=== PATIENT | female | born 1970 | race Caucasian/White ===

== ENCOUNTER 2020-09-25 14:17 | Outpatient (CLI) | payer OTHER, SELFPAY ==
--- NOTE | 2020-09-25 14:44 | ECHO_ITS ---
Patient Info Name: Nika Trujillo Age: 50 years : 1970 Gender: Female Ht: 63 in Wt: 260 lbs BSA: 2.36 m2 HR: 98 bpm BP: 134 / 91 mmHg Technical Quality: Poor Exam Date: 09/25/2020 2:52 PM Exam Location: [facility] Patient Status: Outpatient Admit Date: 09/25/2020 Staff Ordering Physician: Etienne Marcum DO Crime Scene Photographer: Aleida Osborn RDCS Attending Provider: Etienne Marcum DO Referring Physician: Jossue THOMAS; Exam Type: CA echo dop color flow w con Study Info Indications R06.00 - Dyspnea, unspecified Complete two-dimensional, color flow and Doppler transthoracic echocardiogram is performed with contrast to opacify the left ventricle and to improve the deliniation of the left ventricle endocardial borders. Contrast/Agitated Saline Contrast/Ag. Saline: Definity Amount: 2.00 ml Administered By: Carla Langston RN New IV Access: Antecubital Space and Left Site Condition: IV removed and No extravasation Reason for Poor Study: patient body habitus Summary 1. Left ventricular chamber dimension is normal. 2. Definity contrast administered improved wall motion interpretation. 3. Left ventricular systolic function is normal, estimated at 65-70%. 4. The left ventricular diastolic function is grade I diastolic dysfunction. 5. E/e' 7 is not elevated. 6. No pulmonary hypertension, estimated pulmonary arterial systolic pressure is 24 mmHg. 7. There is trace pulmonic regurgitation. Left Ventricle Definity contrast administered improved wall motion interpretation. E/e' 7 is not elevated. Left ventricular chamber dimension is normal. Left ventricular systolic function is normal, estimated at 65-70%. The left ventricular diastolic function is grade I diastolic dysfunction. Right Ventricle Right ventricular chamber dimension is normal. Right ventricular systolic function is normal. Left Atria Left atrial chamber dimension is normal. Right Atria Right atrial chamber dimension is normal. Aortic Valve The aortic valve is probable trileaflet. There is no aortic valve stenosis. There is no aortic valve regurgitation. Pulmonic Valve There is trace pulmonic regurgitation. Mitral Valve There is no mitral valve stenosis. There is no mitral valve regurgitation. Tricuspid Valve There is no tricuspid valve regurgitation. No pulmonary hypertension, estimated pulmonary arterial systolic pressure is 24 mmHg. Pericardium/Pleural There is no pericardial effusion. Inferior Vena Cava Normal inferior vena cava with >50% collapse upon inspiration consistent with normal right atrial pressure, 5 mmHg. Aorta The aortic root size at the sinus of Valsalva is normal. Left Ventricular Outflow Tract Name Value Normal LVOT 2D LVOT Diameter 1.90 cm LVOT Doppler LVOT Peak Gradient 5 mmHg LVOT Mean Gradient 3 mmHg LVOT VTI 20.26 cm LVOT VTI/AV VTI Ratio 0.93 LVOT Stroke Volume 57.57 ml LV
[2020-09-25] MEDS: PERFLUTREN LIPID MICROSPHERES 1.5 ML VIAL DILUTED TO 10 ML TOTAL VOLUME IV PUSH (15:55)
== END 2020-09-25 14:18 | disposition home or self-care (01) ==
PROVIDERS: PCP Family Medicine; Visit Provider Internal Medicine Cardiovascular Disease
DX: R06.00 Dyspnea, unspecified (principal)
CPT/HCPCS: C8929

== ENCOUNTER 2021-10-29 08:37 | Outpatient (CLI) | payer OTHER, SELFPAY ==
--- NOTE | 2021-10-30 09:46 | WPDNEUROLOGY ---
Neurology EEG Report General Information Date of Study: 10/29/21 TEST eeg DIAGNOSIS Transient alteration of awareness CONDITION OF RECORDING awake drowsy and sleep EEG NUMBER [id number] CLINICAL HISTORY patient reports she started having episodes of hand shaking and visual changes about 6 months ago these episodes are happening several times a day and now her legs get shaky as well EEG DESCRIPTION basic resting occipital frequency consists of low voltage 9 to 11 hertz per 2nd alpha admixed with low-voltage 15 to 18 hertz per 2nd beta. Bilateral symmetrical sleep activity seen during sleep. Hyperventilation not done. Photic stimulation produced normal drive. Non paroxysmal. Nonfocal. Nonlateralizing. IMPRESSION Normal record
== END 2021-10-29 08:38 | disposition home or self-care (01) ==
PROVIDERS: PCP Family Medicine; Visit Provider Nurse Practitioner Family
DX: R40.4 Transient alteration of awareness (principal)
CPT/HCPCS: 95816

== ENCOUNTER 2021-11-02 11:17 | Outpatient (CLI) | payer OTHER, SELFPAY ==
--- NOTE | ~2021-11-02 | XR_ITS ---
EXAMINATION: XR chest 2V EXAM DATE: 11/02/2021 11:31 INDICATION: R06.02 - Shortness of breath. TECHNIQUE: Portable AP frontal chest x-ray was obtained. There is no prior study for comparison. FINDINGS: Linear lingular atelectasis or scarring. The lungs are otherwise clear. There are no pleur al effusions. The cardiomediastinal silhouette is within normal limits. There is no pneumothorax huynh spected. The bones and soft tissues are unremarkable. IMPRESSION: Linear lingular atelectasis or scarring. Reviewed, dictated and finalized at location A.
== END 2021-11-02 11:18 ==
LOC: MICIMG 11:20
PROVIDERS: PCP Nurse Practitioner Family; Visit Provider Nurse Practitioner Family
DX: R06.02 Shortness of breath (principal)
CPT/HCPCS: 71046

== ENCOUNTER 2021-11-08 12:33 | Outpatient (CLI) | payer OTHER, SELFPAY ==
--- NOTE | 2021-11-11 20:05 | WPDPFTINT ---
PFT Procedure Performed PFT Procedure Performed Spirometry with Pre/Post Bronchodilator Plethysmography (Lung Vol) Diffusing Cap (DLCO) Flow Vol Loop PFT Interpretation DOS: 11/08/2021 REQUESTING: Terrance Holcomb NP REASON FOR TESTING: Shortness of breath PULMONARY FUNCTION TESTS Results are reliable and reproducible. Spirometry: pre bronchodilator FEV1 is 82% predicted, 2.2 L, normal. Pre bronchodilator FVC is 86% predicted, 2.87 L, normal. FEV1/FVC is 77%, normal. After bronchodilator administration there is a 3% increase in the FEV1 and FVC. This is not statistically significant. Lung volumes: The total lung capacity is 97% predicted, 4.75 L, normal. The slow vital capacity is 92% predicted, 3.07 L, normal. The functional reserve capacity is 97%, 2.64 L, normal. ERV is 73%, 0.76 L, decreased below normal limits. Residual volume is 97%, 1.68 L, normal. RV/TLC is 35%, normal. No hyperinflation or air trapping. Airway resistance is elevated. Diffusion: DLCO 77%, Within the normal range.DLCO/VA is 98%, normal. Flow volume loop: Normal. IMPRESSION: This study shows normal spirometry, normal lung volumes and normal diffusion capacity. Lack of response to bronchodilator should not preclude use if clinically indicated. Abigail Bergman MD
== END 2021-11-08 12:34 | disposition home or self-care (01) ==
LOC: ANHPFT 12:34
PROVIDERS: PCP Nurse Practitioner Family; Visit Provider Nurse Practitioner Family
DX: R06.02 Shortness of breath (principal)
CPT/HCPCS: 94060; 94726; 94729

== ENCOUNTER 2021-11-29 08:17 | Outpatient (CLI) | payer OTHER, SELFPAY ==
--- NOTE | 2021-12-03 12:26 | WPDHOMESLEEP ---
Sleep Study - Home Unattended Date of Study: 11/29/21 Ordering Provider: Sebastien Olsen MD Interpreting Provider: Radha Varela, DO Home Sleep Study Type: Watch PAT Height: 1.63 m Weight: 123.377 kg Body Mass Index: 46.7 Neck Circumference (inches): 16.5 [place]: 10 Reason for Sleep Study Unrefreshing sleep, daytime hypersomnia Sleep History The patient is a 51-year-old female with anxiety, hypertension, seasonal allergies, diabetes, tobacco abuse and morbid obesity had a sleep study ordered for evaluation of sleep apnea. 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 She constantly awakens at night with heartburn, belching or cough. She constantly snores loud enough that others complain. She frequently has trouble sleeping when she has a cold. She frequently wakes up gasping for air throughout the night. She frequently has breathing problems at night observed by herself or others. She constantly sweats excessively at night. She constantly has heart palpitations or irregular heartbeats during the night. She frequently falls asleep during the day but never while driving. He rarely experiences loss of muscle tone when extremely emotional. She constantly has trouble at school or work due to sleepiness. She rarely feels unable to move while waking up or falling asleep. She constantly experiences vivid dreamlike scenes upon awakening or falling asleep. She frequently feels afraid of going to sleep. She occasionally has nightmares but never remembers her dreams. She frequently has thoughts racing through her mind. She constantly feels sad or depressed. She constantly has anxiety. She constantly has muscular tension. She constantly notices parts of her body jerk. She frequently kicks during the night. She constantly has crawling and aching feelings in her legs as well as leg pain during the night. She frequently grinds her teeth during sleep but rarely awakens with morning jaw pain. He is constantly bothered by pain during the day and occasionally awakened by pain during night. She constantly wakes up feeling stiff in the morning. She constantly wakes up with sore achy muscles. She constantly wakes up with pain in neck, spine or other joints. She goes to bed at 11:00 p.m. on weekdays and midnight on the weekends. Her sleep latency is variable from few minutes to few hours. She wakes up twice throughout the night. When she awakens, she will readjust herself or get a drink. She wakes up at 6:30 a.m. on weekdays and does not have a set wake-up time on the weekends. She typically gets 6 and half to 7-1/2 hours of sleep per night. She does not stay in bed after waking up in the morning. She currently lives with her and 15-year-old daughter. She does not consume any caffeinated beverages within 2 hours of bedtime. She does not engage in physical exercise before bedtime. She will watch television before falling asleep. She will take naps in the afternoon or the evening but they are not refreshing. She will drink 3 cans of caffeinated beverage per day. She currently smokes 1 pack of cigarettes per day. She denies alcohol and recreational drug use. [facility] Past Medical History Medical History Anxiety Anxiety associated with depression Arthralgia of temporomandibular joint, unspecified side B12 deficiency BMI greater than 40 Body mass index [BMI]40.0-44.9, adult (11/17/18) COVID Diabetes mellitus Dietary counseling and surveillance (10/21/18) Dizziness Elevated glucose Family history of coronary artery disease Family history of pancreatic cancer History of vitamin D deficiency Morbid (severe) obesity due to excess calories Nausea Rapid or irregular heartbeat Screening for lipid disorders Seasonal allergies Sinus pressure Tobacco abuse Vitamin D deficiency Family History Family History (Reviewed
[2021-12-03 12:32] VITALS: BMI 46.7
== END 2021-11-30 14:19 | disposition home or self-care (01) ==
LOC: ANHCSM 08:17
PROVIDERS: PCP Nurse Practitioner Family; Visit Provider Family Medicine
DX: G47.10 Hypersomnia, unspecified (principal); G47.33 Obstructive sleep apnea (adult) (pediatric)
CPT/HCPCS: 95800

== ENCOUNTER 2021-12-08 11:38 | Outpatient (CLI) | payer OTHER, SELFPAY ==
--- NOTE | ~2021-12-08 | MM_ITS ---
EXAMINATION: MM screening melina BI w jagdish HISTORY: Screening mammogram TECHNIQUE: Craniocaudal and mediolateral oblique 3-D tomosynthesis images were obtained and synthetic 2-D images were generated. Bilateral rotated lateral CC views. CAD analysis was submitted and interp reted. COMPARISON: No prior mammogram is available for comparison at this institution. BREAST PARENCHYMAL COMPOSITION: There are scattered areas of fibroglandular density. FINDINGS: Circumscribed benign-appearing left axillary tail lymph node. There is no evidence of suspi cious mass, calcification, or architectural distortion to suggest malignancy in either breast. IMPRESSION: 1. No mammographic evidence of malignancy. 2. Recommend routine screening mammography in one year. BI-RADS Category 2: Benign finding(s). Reviewed, dictated and finalized at location A.
== END 2021-12-08 11:39 | disposition home or self-care (01) ==
LOC: ANHIMG 11:40
PROVIDERS: PCP Nurse Practitioner Family; Visit Provider Nurse Practitioner Family
DX: Z12.31 Encounter for screening mammogram for malignant neoplasm of breast (principal)
CPT/HCPCS: 77063; 77067

== ENCOUNTER 2021-12-20 16:00 | Outpatient (CLI) | payer OTHER, SELFPAY ==
--- NOTE | ~2021-12-20 | US_ITS ---
US axilla 12/20/2021 16:46 Indication: Lymphadenopathy Procedure: High-resolution Limited ultrasound of the axilla bilaterally Comparison: No prior studies for comparison. Findings: There are normal appearing bilateral axillary lymph nodes which retain their fatty hilum. L argest in the right axilla measures 8 mm in largest on the left measures 1.2 cm. No suspicious masses or fluid collections are identified. Impression: 1: Normal bilateral axillary lymph nodes. Reviewed, dictated and finalized at location D. Impression: 1: Normal bilateral axillary lymph nodes.
== END 2021-12-20 16:01 | disposition home or self-care (01) ==
PROVIDERS: PCP Nurse Practitioner Family; Visit Provider Nurse Practitioner Family
DX: R59.0 Localized enlarged lymph nodes (principal)
CPT/HCPCS: 76882

== ENCOUNTER 2022-01-21 15:12 | Outpatient (CLI) | payer OTHER, SELFPAY ==
--- NOTE | ~2022-01-21 | MR_ITS ---
EXAMINATION: MR cervical spine wo/w con DATE: 01/21/2022 17:53 INDICATION: Demyelinating disease. TECHNIQUE: Magnetic resonance imaging (MRI) of the cervical spine was performed without and with 20 m L MultiHance intravenous contrast. COMPARISON: None FINDINGS: There is mild kyphosis of cervical spine. Vertebral body heights are normal. There is mildl y decreased disc height at C5-C6 and C6-C7. The spinal cord signal intensity is normal. The following disc levels are specifically discussed: C2-C3: The disc does not extend beyond the endplate margin. There is no uncovertebral joint osteoarth ritis. There is mild bilateral facet joint osteoarthritis. There is no neural foraminal stenosis. The re is no central canal stenosis. C3-C4: There is a right central protrusion. There is mild right uncovertebral joint osteoarthritis. T here is no facet joint osteoarthritis. There is mild right neural foraminal stenosis. There is no fina tral canal stenosis. C4-C5: There is a central protrusion. There is no uncovertebral joint osteoarthritis. There is mild r ight facet joint osteoarthritis. There is no neural foraminal stenosis. There is mild central canal s tenosis. C5-C6: There is a central extrusion. There is mild right and moderate left uncovertebral joint osteoa rthritis. There is mild right facet joint osteoarthritis. There is mild left neural foraminal stenosi s. There is mild central canal stenosis. C6-C7: There is a central extrusion. There is moderate bilateral uncovertebral joint osteoarthritis. There is mild right facet joint osteoarthritis. There is mild bilateral neural foraminal stenosis. Th ere is mild central canal stenosis. C7-T1: The disc does not extend beyond the endplate margin. There is no uncovertebral joint osteoarth ritis. There is severe right and moderate left facet joint osteoarthritis. There is mild bilateral ne ural foraminal stenosis. There is no central canal stenosis. IMPRESSION: 1. Normal spinal cord. 2. Mild cervical spondylosis. Reviewed, dictated and finalized at location A.
--- NOTE | ~2022-01-21 | MR_ITS ---
EXAMINATION: MR brain/brain stem wo/w con DATE: 01/21/2022 17:52 INDICATION: Demyelinating disease. TECHNIQUE: Magnetic resonance imaging (MRI) of the brain and brainstem was performed without and with 20 mL MultiHance intravenous contrast. COMPARISON: Head CT 04/15/2010 FINDINGS: There is no intracranial hemorrhage, acute infarction, or abnormal intracranial mass lesion . The ventricles are normal in size. The orbits are normal. The paranasal sinuses are clear. The mast oid air cells are normal. IMPRESSION: 1. Normal brain. Reviewed, dictated and finalized at location A. IMPRESSION: 1. Normal brain.
--- NOTE | ~2022-01-21 | MR_ITS ---
EXAMINATION: MR thoracic spine wo/w con DATE: 01/21/2022 17:52 INDICATION: Demyelinating disease. TECHNIQUE: Magnetic resonance imaging (MRI) of the thoracic spine was performed without and with 20 m L MultiHance intravenous contrast. COMPARISON: None FINDINGS: There is 3 degrees dextrocurvature of thoracic spine. Vertebral body heights are normal. Th ere is mildly decreased disc height at T5-T6. At T2-T3, there is a central protrusion with mild centr al canal stenosis. There is multilevel facet joint osteoarthritis, moderate on the left at T7-T8. On the left, there is mild neural foraminal stenosis at T7-T8. The spinal cord signal intensity is malorie l. IMPRESSION: 1. Normal spinal cord. 2. Mild thoracic spondylosis. Reviewed, dictated and finalized at location A.
== END 2022-01-21 15:13 | disposition home or self-care (01) ==
PROVIDERS: PCP Nurse Practitioner Family; Visit Provider Psychiatry & Neurology Neurology
DX: G37.9 Demyelinating disease of central nervous system, unspecified (principal); M47.894 Other spondylosis, thoracic region; M47.892 Other spondylosis, cervical region
CPT/HCPCS: 70553; 72156; 72157; A9577

== ENCOUNTER → 2022-01-26 07:28 | Outpatient (CLI) | payer OTHER, SELFPAY ==
--- NOTE | ~2022-01-26 | US_ITS ---
EXAMINATION: US abdomen complete DATE: 01/26/2022 07:54 INDICATION: Elevated liver enzymes, abdominal pain. TECHNIQUE: Multiple grayscale and Doppler ultrasound images of the abdomen were obtained. COMPARISON: None available FINDINGS: Visualized portions of the pancreas are normal. Increased liver echogenicity. No surface no dularity. Normal hepatopetal flow in the main portal vein. Absent gallbladder. The normal common bile duct measures 0.5 cm. The visualized portions of the aorta and inferior vena cava are normal. The right kidney measures 11.6 x 4.2 x 6.1. The left kidney measures 11.6 x 5.1 x 5.6. The kidneys de monstrate normal parenchymal echogenicity. There is no hydronephrosis. The spleen is normal in appear ance and measures 9.2 cm. IMPRESSION: 1. Echogenic liver, as can be seen with steatosis, fibrosis and hepatitis. Reviewed, dictated and finalized at location K.
== END ==
PROVIDERS: PCP Nurse Practitioner Family; Visit Provider Nurse Practitioner Family
DX: R74.01 Elevation of levels of liver transaminase levels (principal); R10.9 Unspecified abdominal pain; R93.2 Abnormal findings on diagnostic imaging of liver and biliary tract
CPT/HCPCS: 76700

== ENCOUNTER 2022-03-08 08:51 | Outpatient (CLI) | payer OTHER, SELFPAY ==
--- NOTE | 2022-03-08 11:00 | NEURO_ITS ---
Impression: # Complains of syncopal episodes. # Axonal peripheral neuropathy involving peroneal nerves more than posterior tibial nerves and involving right more than left. # Needle/EMG exam revealed neurogenic changes. Nerve Conduction Studies Anti Sensory Summary Table Stim Site NR Peak (ms) P-T Amp (?V) Site1 Site2 Delta-P (ms) Dist (cm) Dimitris (m/s) Left Sup Fibular Anti Sensory (Ant Lat Mall) 14 cm 3.1 47.1 14 cm Ant Lat Mall 3.1 16.0 52 Right Sup Fibular Anti Sensory (Ant Lat Mall) NO RESPONSE 14 cm NR 14 cm Ant Lat Mall 16.0 Left Sural Anti Sensory (Lat Mall) Calf 3.6 7.9 Calf Lat Mall 3.6 16.0 44 Right Sural Anti Sensory (Lat Mall) NO RESPONSE Calf NR Calf Lat Mall 16.0 Motor Summary Table Stim Site NR Onset (ms) O-P Amp (mV) Site1 Site2 Delta-0 (ms) Dist (cm) Dimitris (m/s) Left Peroneal Motor (Vastus Med) Ankle 4.0 1.5 Popit Ankle 7.0 37.0 53 Popit 11.0 0.7 Right Peroneal Motor (Vastus Med) Ankle 4.0 0.3 Popit Ankle 6.9 37.0 54 Popit 10.9 0.5 Left Tibial Motor (Abd Saldaña Brev) Ankle 4.5 5.5 Knee Ankle 8.7 40.0 46 Knee 13.2 3.7 Right Tibial Motor (Abd Saldaña Brev) Ankle 4.3 4.9 Knee Ankle 8.0 39.0 49 Knee 12.3 1.2 F Wave Studies NR F-Lat (ms) L-R F-Lat (ms) Left Peroneal (Mrkrs) (EDB) 47.60 0.82 Right Peroneal (Mrkrs) (EDB) 48.42 0.82 Left Tibial (Mrkrs) (Abd Hallucis) 47.11 0.86 Right Tibial (Mrkrs) (Abd Hallucis) 47.97 0.86 EMG Side Muscle Nerve Root Ins Act Fibs Amp Dur Recrt Comment Right AntTibialis Dp Br Fibular L4-5 Nml Nml Nml Nml Reduced Right Gastroc Tibial S1-2 Nml Nml Nml Nml Reduced Right Fibularis Long Sup Br Fibular L5-S1 Nml Nml Decr Nml Reduced Right Flex Dig Long Tibial L5-S2 Nml Nml Nml Nml Reduced Right Ext Dig Brev Dp Br Fibular L5, S1 Nml Nml Decr Nml Reduced Left AntTibialis Dp Br Fibular L4-5 Nml Nml Nml Nml Reduced Left Gastroc Tibial S1-2 Nml Nml Nml Nml Reduced Left Fibularis Long Sup Br Fibular L5-S1 Nml Nml Decr Nml Reduced Left Flex Dig Long Tibial L5-S2 Nml Nml Nml Nml Reduced Left Ext Dig Brev Dp Br Fibular L5, S1 Nml Nml Decr Nml Reduced MTDD
== END 2022-03-08 08:52 | disposition home or self-care (01) ==
PROVIDERS: PCP Nurse Practitioner Family; Visit Provider Psychiatry & Neurology Neurology
DX: G62.9 Polyneuropathy, unspecified (principal)
CPT/HCPCS: 95886; 95910

== ENCOUNTER 2022-03-25 09:50 | Outpatient (CLI) | payer OTHER, SELFPAY ==
--- NOTE | ~2022-03-25 | MR_ITS ---
EXAMINATION: MR abdomen wo/w con DATE: 03/25/2022 11:13 INDICATION: Iron deposition and accumulation in the liver. Hereditary hemochromatosis. TECHNIQUE: Magnetic resonance imaging (MRI) of the abdomen was performed without and with 20 mL Multi Michelle intravenous contrast. COMPARISON: Abdomen ultrasound 01/26/2022 FINDINGS: There is diffuse hepatic steatosis. The gallbladder is absent. The pancreas and spleen are normal. Th ere are masses in the adrenal glands measuring up to 2.8 cm on the right containing microscopic fat, consistent with adenomas. The kidneys are normal. There are no dilated loops of bowel. There are no p athologically enlarged lymph nodes. There is no free intraperitoneal fluid. IMPRESSION: 1. Diffuse hepatic steatosis. 2. Bilateral adrenal adenomas. Reviewed, dictated and finalized at location A.
== END 2022-03-25 09:51 | disposition home or self-care (01) ==
LOC: ANHIMG 09:53
PROVIDERS: PCP Family Medicine; Visit Provider Nurse Practitioner
DX: E83.110 Hereditary hemochromatosis (principal); R79.89 Other specified abnormal findings of blood chemistry; R93.2 Abnormal findings on diagnostic imaging of liver and biliary tract; K76.0 Fatty (change of) liver, not elsewhere classified; D35.01 Benign neoplasm of right adrenal gland; D35.02 Benign neoplasm of left adrenal gland
CPT/HCPCS: 74183; A9577

== ENCOUNTER 2022-05-30 10:01 | Outpatient (CLI) | payer OTHER, SELFPAY ==
--- NOTE | ~2022-05-30 | US_ITS ---
EXAMINATION: US thyroid DATE: 05/30/2022 10:32 INDICATION: Goiter. TECHNIQUE: Multiple ultrasound images of the thyroid were obtained. COMPARISON: None. FINDINGS: The right thyroid lobe measures 4.1 x 1.3 x 1.7 cm. The left thyroid lobe measures 3.7 x 1.1 x 1.7 c m. In the left thyroid lobe, there is an 8 mm mixed cystic and solid, isoechoic, wider than tall nod ule with smooth margin without echogenic foci (TI-RADS TR2). In the right thyroid lobe, there is a 5 mm solid, hypoechoic, wider than tall nodule with smooth margin without echogenic foci (TR4). IMPRESSION: 1. Small thyroid nodules, likely not clinically significant. No follow-up is needed. Reviewed, dictated and finalized at location A. 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 Small thyroid nodules, likely not clinically significant. No follow-up is ne eded.
== END 2022-05-30 10:02 | disposition home or self-care (01) ==
PROVIDERS: PCP Family Medicine; Visit Provider Internal Medicine Endocrinology, Diabetes & Metabolism
DX: E04.2 Nontoxic multinodular goiter (principal)
CPT/HCPCS: 76536

== ENCOUNTER 2022-07-25 15:29 | Outpatient (RCR) | payer OTHER, SELFPAY | END 2022-09-13 14:56 | disposition home or self-care (01) | LOC: ANHDMC 15:29 | PROVIDERS: PCP Family Medicine; Visit Provider Internal Medicine Endocrinology, Diabetes & Metabolism | DX: E11.65 Type 2 diabetes mellitus with hyperglycemia (principal); Z71.89 Other specified counseling | CPT/HCPCS: G0108 ==

== ENCOUNTER 2022-08-29 16:38 | Outpatient (CLI) | payer OTHER, SELFPAY ==
--- NOTE | ~2022-08-29 | MR_ITS ---
EXAMINATION: MR abdomen wo/w con DATE: 08/29/2022 18:12 INDICATION: Abdominal pain. TECHNIQUE: Magnetic resonance imaging (MRI) of the abdomen was performed without and with 20 mL Multi Michelle intravenous contrast. COMPARISON: Abdomen MRI 03/25/2022 FINDINGS: There is diffuse hepatic steatosis. The gallbladder is absent. The spleen is normal. There is incompl ete pancreas divisum. There is a 3.4 cm mass in right adrenal gland containing microscopic fat, consi stent with an adenoma. There is a 1.7 cm mass in left adrenal gland containing microscopic fat, consi stent with an adenoma. The kidneys are normal. There are no dilated loops of bowel. There are no path ologically enlarged lymph nodes. There is no free intraperitoneal fluid. IMPRESSION: 1. Stable bilateral adrenal adenomas. 2. Diffuse hepatic steatosis. Reviewed, dictated and finalized at location A. 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
== END 2022-08-29 16:39 | disposition home or self-care (01) ==
PROVIDERS: PCP Family Medicine; Visit Provider Internal Medicine Endocrinology, Diabetes & Metabolism
DX: R10.9 Unspecified abdominal pain (principal); D35.02 Benign neoplasm of left adrenal gland; D35.01 Benign neoplasm of right adrenal gland; K76.0 Fatty (change of) liver, not elsewhere classified
CPT/HCPCS: 74183; A9577

== ENCOUNTER 2022-12-26 22:20 | Emergency (ER) | payer OTHER, SELFPAY ==
[2022-12-26 22:23] VITALS: BP 100/74; PULSE 96; RESP 15; TEMP 36.4; O2SAT 100
--- NOTE | 2022-12-26 23:53 | PC.NURSE ---
This RN entered room to administer medication. Informed pt that benadryl has been ordered to help her nausea and vomiting. Pt states Well that'll make me tired. How am I going to get home? This RN reminded pt that she came in by EMS so she would need to find a ride home regardless. Pt states I guess my family can come pick me up . This RN again asked pt if she wanted the benadryl or not. Pt states You know what? I don't want the fucking benadryl. I guess I'll just call my to come and fucking pick me up. This RN advised pt that cursing at staff will not be tolerated and asked pt if this RN could remove her IV. Pt states You're not fucking touching me until I talk to your [facility] charge nurse . Charge nurse notified.
--- NOTE | 2022-12-27 00:09 | ED.GENADULT ---
HPI - General Adult General Chief complaint: Unspecified Stated complaint: heat exposure? anxiety? Time Seen by Provider: 12/26/22 23:08 History of Present Illness HPI narrative: Patient 52-year-old female who presents the emergency department with a chief complaint of nausea and vomiting and anxiety. Patient reports that she has been having ongoing nausea and vomiting secondary to hemochromatosis and multiple other medical conditions the patient states that she started all Zofran and then was out of the garage all day and lost track of time and think she may have gotten overheated patient states she got upset with her son and then proceeded to become anxious Related Data Home Medications Medication Instructions Recorded Confirmed empagliflozin 25 mg tablet 25 mg PO DAILY 06/25/22 12/18/22 (Jardiance) exenatide microspheres 2 mg/0.85 ml subcut 06/25/22 12/18/22 mL subcutaneous auto-injector (BydureTopFloor BCise) glimepiride 2 mg tablet 2 mg PO DAILY PRN sliding scale 06/25/22 12/18/22 [id number] 1 cap PO TID 06/25/22 12/18/22 40,000-126,000-168,000 unit capsule, delay rel (Zenpep) folic acid 20 mg capsule 20 mg PO DAILY 09/26/22 12/18/22 vitamin B complex ea .Route 09/26/22 12/18/22 Allergies Allergy/AdvReac Type Severity Reaction Status Date / Time levofloxacin Allergy Mild Unknown Verified 12/26/22 22:39 cephalexin Allergy Unknown Unknown Verified 12/26/22 22:39 Review of Systems Review of Systems: A 10 system review of systems was completed on the patient and is negative except for what is stated in the HPI. Nursing and ancillary documentation was reviewed. [facility] Past Medical History Medical History Abnormal liver diagnostic imaging Abscess of axilla, left Adrenal mass Anxiety Anxiety associated with depression Arthralgia of temporomandibular joint, unspecified side B12 deficiency BMI 45.0-49.9, adult BMI greater than 40 Body mass index [BMI]40.0-44.9, adult (11/17/18) Colon cancer screening COVID Diabetes mellitus Dietary counseling and surveillance (10/21/18) Dizziness Elevated ferritin Elevated glucose Exocrine pancreatic insufficiency Family history of coronary artery disease Family history of pancreatic cancer Hepatic steatosis Hereditary hemochromatosis Highly echogenic liver on ultrasound History of vitamin D deficiency Hypertension IBS (irritable bowel syndrome) Morbid (severe) obesity due to excess calories Nausea Rapid or irregular heartbeat Screening for lipid disorders Seasonal allergies Sinus pressure Thyroid nodule Tobacco abuse Vitamin D deficiency Surgical History Surgical History History of cholecystectomy 1998 Family History Family History Father COPD (chronic obstructive pulmonary disease) Emphysema of lung Atrial fibrillation Vitamin D deficiency Aortic aneurysm Aneurysm Cerebrovascular accident Mother Diabetes mellitus Pancreatic cancer Osteoporosis Thyroid disease Vitamin D deficiency Cancer Sibling , brother Lung cancer Cancer brother Heart disease sister Sibling COPD (chronic obstructive pulmonary disease) Anxiety COVID-19 Asthma sister Alcoholism Son Congenital heart defect Depression Heart disease Daughter Atypical migraine Thyroid activity decreased Thyroid disease Daughter Asthma Grandparent Cancer Other Cancer uncle Hypertension uncle Heart disease uncle Thyroid disease aunt and uncle Other Family history of pancreatic cancer Family history of thoracic aortic aneurysm Family history of thyroid disease Social History Social History (Reviewed 12/27/22 @ 00:10 by Satish Goldberg
[2022-12-27 00:43] LABS: Basophils Absolute Auto 0.1 K/mm3 (0.0-0.1); Basophils Percent Auto 0.6 % (0.2-1.2); Eosinophils Absolute Auto 0.1 K/mm3 (0-0.3); Eosinophils Percent Auto 0.3 % (0-4.4); Hematocrit 45.8 % (37.0-47.0); Hemoglobin 15.2 g/dL (12.0-15.0); Immature Granulocyte Absolute 0.06 K/mm3 (0.00-0.031); Immature Granulocyte Percent A 0.4 % (0-0.5); Lymphocytes Absolute Auto 2.17 K/mm3 (0.9-3.2); Lymphocytes Percent Auto 13.7 % (18.3-44.2); Mean Corpuscular HGB Conc 33.2 g/dl (32-36); Mean Corpuscular Hemoglobin 31.4 pg (26-34); Mean Corpuscular Volume 94.6 fl (80-100); Mean Platelet Volume 10.8 fl (7.4-10.4); Monocytes Absolute Auto 0.9 K/mm3 (0.1-0.6); Monocytes Percent Auto 5.9 % (2.6-8.5); Neutrophils Absolute Auto 12.5 K/mm3 (1.3-6.7); Neutrophils Percent Auto 79.1 % (45.5-73.1); Platelet Count Result 251 k/mm3 (150-375); Red Blood Count 4.84 M/mm3 (4.2-5.4); Red Cell Distribution Width 13.7 % (11.5-14.5); White Blood Count 15.8 K/mm3 (4.5-10.0)
[2022-12-27] MEDS: PROCHLORPERAZINE EDISYLATE 10 MG/2 ML VIAL IV PUSH (00:50)
[2022-12-27] MEDS: diphenhydrAMINE HCl INJ 50 MG/ML VIAL IV PUSH (00:50)
[2022-12-27 00:53] LABS: Lactic Acid Reflex 1.8 mmol/L (0.7-2.0)
[2022-12-27 00:54] LABS: Alanine Aminotransferase 54 U/L (6-35); Alkaline Phosphatase 89 U/L (38-126); Anion Gap 4 mmol/L (8-16); Aspartate Amino Transferase 45 U/L (14-36); Bilirubin,Total 0.5 mg/dL (0.2-1.3); Blood Urea Nitrogen 10 mg/dL (7-17); Carbon Dioxide 30 mmol/L (22-30); Chloride 106 mmol/L (98-107); Estimated CRCL calculation 84 ml/min; Estimated Glomerular Filt Rate > 60; Glucose 135 mg/dL (65-110); Potassium 3.4 mmol/L (3.4-5.0); Sodium 140 mmol/L (137-145)
[2022-12-27 01:00] VITALS: BP 124/80; PULSE 88; RESP 16; O2SAT 98
[2022-12-27 01:33] LABS: Appearance Urine Clear (Clear); Bilirubin Urine Negative (Negative); Blood Urine Negative (Negative); Color Urine Yellow (Yellow); Glucose Urine UA 3+ mg/dL (Negative); Ketones Urine 1+ mg/dL (Negative); Leukocyte Esterase Ur Negative LEU/UL (Negative); Nitrate Urine Negative (Negative); Protein Urine Negative (Negative); Specific Grav Ur 1.014 (1.001-1.035); Urobilinogen Urine 0.2 mg/dL (<2.0); pH Urine 6.5 (5.0-9.0)
[2022-12-27 01:39] LABS: Add Urine Microscopic? NO
--- NOTE | 2022-12-27 01:40 | PC.NURSE ---
Pt states she called her to come pick her up because she feels better. Dr. Garvey notified.
== END 2022-12-27 01:50 | disposition home or self-care (01) ==
PROVIDERS: Emergency Provider Emergency Medicine; PCP Family Medicine
DX: R11.2 Nausea with vomiting, unspecified (principal); I10 Essential (primary) hypertension; E11.9 Type 2 diabetes mellitus without complications; K86.81 Exocrine pancreatic insufficiency; E83.110 Hereditary hemochromatosis; K58.9 Irritable bowel syndrome, unspecified; E55.9 Vitamin D deficiency, unspecified; E66.01 Morbid (severe) obesity due to excess calories; Z68.41 Body mass index [BMI] 40.0-44.9, adult; Z86.16 Personal history of COVID-19; Z90.49 Acquired absence of other specified parts of digestive tract; Z79.84 Long term (current) use of oral hypoglycemic drugs; F17.210 Nicotine dependence, cigarettes, uncomplicated
CPT/HCPCS: 36415; 80053; 81003; 81025; 83605; 83735; 85025; 96374; 96375; 99284; J0780; J1200; J2405

== ENCOUNTER → 2023-01-16 14:02 | Outpatient (CLI) | payer OTHER, SELFPAY ==
--- NOTE | ~2023-01-16 | XR_ITS ---
Supine and upright views of the abdomen Clinical history: Nausea Findings: Bowel gas pattern is nonspecific. Moderate stool burden noted. No evidence for obstruction or free air. No abnormal mass lesion or calcification is seen. IUD in place. Cholecystectomy clips no aubrey. Osseous structures are intact. Impression: IUD in place. Moderate stool. Correlate for constipation. Reviewed, dictated and finalized at [facility]. Impression: IUD in place. Moderate stool. Correlate for constipation.
== END ==
PROVIDERS: PCP Nurse Practitioner Family; Visit Provider Nurse Practitioner Family
DX: R11.0 Nausea (principal); K59.00 Constipation, unspecified; Z97.5 Presence of (intrauterine) contraceptive device
CPT/HCPCS: 74018

== ENCOUNTER 2023-01-24 03:03 | Day surgery (SDC) | payer OTHER, SELFPAY ==
[2023-01-20 14:25] VITALS: BMI 41.6
--- NOTE | 2023-01-20 15:30 | PC.NURSE ---
Report to the Outpatient Waiting Room, entrance under the green pavilion located off [facility], at time _1100 on date __01/24/23 . Planned Procedure Time: __1300 . Time changes happen often and if your time is changed the preop area will call you the afternoon before. - You and your visitor will be asked to self-screen and do not enter if you have any COVID symptoms. - A mask is optional within the hospital at this time. Patients may have clear liquids (water, carbonated beverages, clear teas, apple juice) until 3 hours prior to surgery with a maximum of 20 ounces. - No food from midnight until time of surgery Take ONLY the following medications with a SIP of water the morning of surgery: _ALPRAZOLAM; GABAPENTIN, CYMBALTA; METOPROLOL DO NOT STOP ANY OF YOUR OTHER PRESCRIPTION MEDICATIONS PRIOR TO SURGERY ?EXCEPT THE FOLLOWING Medications to discontinue per physician VITAMIN B COMPLEX INJECTION-CONT TO HOLD Date to take last dose Please no make-up, nail uzbek, hairspray, perfume, deodorant, or body powder the day of surgery. No jewelry (including any body piercings) or valuables the day of surgery, leave them at home. Please take a shower or bath the night before, or the morning of, surgery with an antibacterial soap. Wear comfortable, loose fitting clothing. - Jewelry must be removed prior to entering the operating room. Rings and piercings that are not removed may be cut off. - The hospital will not accept responsibility for valuables. - Please leave all valuables, including medications, at home the day of surgery. If you are going home after surgery, a licensed national van truck driver must drive you home. - NO public transportation without another adult if you receive anesthesia. - We recommend that an adult stay with you for 24 hours following discharge. - We also recommend that you do not drive, make important decision, drink alcoholic beverages, or take any drugs that were not prescribed by your health care provider for at least 24 hours after your discharge time. Follow any additional instructions given to you from your surgeon. If you or anyone in your household have experienced Covid symptoms in the past week, please notify your surgeon or the nurse liaison at the phone number below for possible testing. Telephone instructions given to _ROBBIE and asked if any additional questions and then verbalized understanding. Patient advised to call surgeon office or pre surgery nurse liaison [phone] if any additional questions.
--- NOTE | 2023-01-23 07:23 | PM.IMHP ---
H&P: HPI History of Present Illness Date/Time: 01/23/23 07:23 Chief Complaint: unable to reach IUD Narrative: is a 52-year-old female for hysteroscopic removal. IUD was string is not seen. It has been proven to be in the uterus by ultrasound. She is admitted for hysteroscopy and. [facility] Past Medical History Medical History Abnormal liver diagnostic imaging Abscess of axilla, left Adrenal mass Anxiety Anxiety associated with depression Arthralgia of temporomandibular joint, unspecified side B12 deficiency BMI 45.0-49.9, adult BMI greater than 40 Body mass index [BMI]40.0-44.9, adult (11/17/18) Colon cancer screening COVID Diabetes mellitus Dietary counseling and surveillance (10/21/18) Dizziness Elevated ferritin Elevated glucose Exocrine pancreatic insufficiency Family history of coronary artery disease Family history of pancreatic cancer Hepatic steatosis Hereditary hemochromatosis Highly echogenic liver on ultrasound History of vitamin D deficiency Hypertension IBS (irritable bowel syndrome) Morbid (severe) obesity due to excess calories Nausea Rapid or irregular heartbeat Screening for lipid disorders Seasonal allergies Sinus pressure Thyroid nodule Tobacco abuse Vitamin D deficiency Surgical History Surgical History History of cholecystectomy 1998 Family History Family History Father COPD (chronic obstructive pulmonary disease) Emphysema of lung Atrial fibrillation Vitamin D deficiency Aortic aneurysm Aneurysm Cerebrovascular accident Mother Diabetes mellitus Pancreatic cancer Osteoporosis Thyroid disease Vitamin D deficiency Cancer Sibling , brother Lung cancer Cancer brother Heart disease sister Sibling COPD (chronic obstructive pulmonary disease) Anxiety COVID-19 Asthma sister Alcoholism Son Congenital heart defect Depression Heart disease Daughter Atypical migraine Thyroid activity decreased Thyroid disease Daughter Asthma Grandparent Cancer Other Cancer uncle Hypertension uncle Heart disease uncle Thyroid disease aunt and uncle Other Family history of pancreatic cancer Family history of thoracic aortic aneurysm Family history of thyroid disease Social History Social History Social History: current smoker Smoking packs per day: 1 Smoking cigarettes per day: 20.0 Years smoked: 30 Smoking pack-years: 30.00 Smoking status: Current every day smoker Tobacco type: cigarettes and e-cigarettes/vaping Second hand tobacco smoke exposure: No Alcohol intake: never Substance use: never Substance use type: marijuana Other substance usage details: MEDICAL MARIJUANA Last use: 01/18/23 Lack of Transportation: No Lack of Food: Never True Current Housing: I Have Housing Concerned About Future Housing: No Difficulty Paying Gas/Electric Bills: No Difficulty Paying for Meds: No Currently Unemployed: No Education: High School Diploma/GED Difficulty w/ Childcare or Family Care: No Living arrangements: with family Occupation/Education: occupation 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
--- NOTE | 2023-01-24 00:03 | WPDHPUPDATE1 ---
History and Physical Update Update Date/Time: 01/24/23 00:03 History and Physical has been reviewed, including an updated exam of the patient. There are NO changes in the patient's condition. Risks, benefits, and alternatives have been discussed and questions answered. Patient agrees to proceed with procedure.
[2023-01-24 08:05] VITALS: BP 136/76; PULSE 70; RESP 16; TEMP 36.6; O2SAT 100; BMI 40.5
[2023-01-24] MEDS: LACTATED RINGERS 1,000 ML 30 ML IV CONT (08:51)
[2023-01-24] MEDS: ACETAMINOPHEN 500 MG TABLET 1000 MG PO (08:53)
[2023-01-24 08:56] LABS: Glucose Point of Care 119 mg/dl (65-105)
--- NOTE | 2023-01-24 09:01 | WPDANESEPPF ---
Anes - Initial Pre Proc Eval Procedure: Operation Date: 01/24/23 09:45 Proposed Procedures p Hysteroscopy with Intrauterine Device Removal - Benji Nieto MD Date/Time: 01/24/23 09:01 Surgeon: Benji Nieto MD Pre Op Diagnosis: lost iud Patient Data Age: 52 Gender: F Height: 1.63 m Weight: 110 kg Allergies Allergy/AdvReac Type Severity Reaction Status Date / Time levofloxacin Allergy Mild Unknown Verified 01/24/23 08:56 cephalexin Allergy Unknown Unknown Verified 01/24/23 08:56 Home Medications Medication Instructions Recorded Confirmed Type blood-glucose meter (Contour Meter #1 ea 01/10/21 12/18/22 Rx kit) lancets 28 gauge (CareTouch Safety #100 ea 01/10/21 12/18/22 Rx Lancets) blood sugar diagnostic (Contour See Rx Instructions .Route 08/22/21 01/20/23 Rx Next Test Strips) .COMPLEX #100 ea metoprolol succinate 25 mg See Rx Instructions .Route 05/22/22 01/20/23 Rx tablet,extended release 24 hr .COMPLEX #90 tabs empagliflozin 25 mg tablet 25 mg PO DAILY 06/25/22 01/20/23 History (Jardiance) exenatide microspheres 2 mg/0.85 0.85 ml subcut DAILY 06/25/22 01/20/23 History mL subcutaneous auto-injector (Bydureon BCise) glimepiride 2 mg tablet 2 mg PO DAILY PRN sliding scale 06/25/22 01/20/23 History iyufva-[id number] 1 cap PO TID 06/25/22 01/20/23 History 40,000-126,000-168,000 unit capsule, delay rel (Zenpep) epinephrine 0.3 mg/0.3 mL 0.3 mg (0.3 mL) IM ONCE PRN 08/05/22 01/20/23 Rx injection, auto-injector anaphylaxis #2 ea folic acid 20 mg capsule 20 mg PO DAILY 09/26/22 01/20/23 History vitamin B complex ea .Route 09/26/22 12/18/22 History gabapentin 300 mg capsule 600 mg PO BID #360 caps 10/09/22 01/20/23 Rx metformin 500 mg tablet 1,000 mg PO DAILY #180 tabs 10/09/22 01/20/23 Rx omeprazole 20 mg capsule,delayed 20 mg PO DAILY #90 caps 12/12/22 01/20/23 Rx release ondansetron 4 mg disintegrating 4 mg PO Q6H PRN nausea and 12/12/22 01/20/23 Rx tablet vomiting #30 tabs albuterol sulfate 90 mcg/actuation 1 inh inhalation Q4H PRN shortness 12/19/22 01/20/23 Rx aerosol inhaler of breath or wheezing #8.5 grams duloxetine 60 mg capsule,delayed 120 mg PO DAILY #180 caps 12/26/22 01/20/23 Rx release (Cymbalta) scopolamine base 1 mg over 3 days 1 patch transdermal Q3D PRN nausea 12/26/22 01/20/23 Rx transdermal patch and vomiting #10 ea modafinil 200 mg tablet 400 mg PO QAM #60 tabs 01/01/23 01/20/23 Rx alprazolam 0.5 mg tablet (Xanax) 0.5 mg PO BID #60 tabs 01/06/23 01/20/23 Rx dexamethasone 1 mg tablet 1 mg PO DAILY 01/15/23 01/20/23 History hydrocodone 5 mg-acetaminophen 325 1 tablet PO Q4H PRN pain #20 tabs 01/24/23 Rx mg tablet trazodone 50 mg tablet 50 mg PO DAILY #90 tabs 01/24/23 Rx Laboratory Tests 01/24/23 08:50 POC Capillary Glucose 119 H mg/dl (65-105) Patient hx anesthesia problems: none Family hx anesthesia problems: none Results Review: All pre-operative results and documents have been reviewed as part of the pre-operative evaluation. [facility] Past Medical History Medical History Abnormal liver diagnostic imaging Abscess of axilla, left Adrenal mass Anxiety Anxiety associated with depression Arthralgia of temporomandibular joint, unspecified side B12 deficiency BMI 45.0-49.9, adult BMI greater than 40 Body mass index [BMI]40.0-44.9, adult (11/17/18) Colon cancer screening COVID Diabetes mellitus Dietary counseling and surveillance (10/21/18) Dizziness Dizziness Elevated ferritin Elevated glucose Exocrine pancreatic insufficiency Family history of coronary artery disease Family history of pancreatic cancer Hepatic steatosis Hereditary hemochromatosis Highly echogenic liver on ultrasound History of vitamin D deficiency Hypertension IBS (irritable bowel syndrome) Morbid (severe) obesity due to excess calories Nausea Rapid or irregular heartbe
[2023-01-24] MEDS: LIDOCAINE HCL 1% LOCAL INJ 20 ML VIAL 10 ML INFILTRATE (10:15)
--- NOTE | 2023-01-24 10:24 | W.PM.PROC2 ---
Procedure Note - Detailed Date of Procedure 01/24/23 Pre-op Diagnosis lost iud Post-op Diagnosis Other (Lost IUDs / polyp) Procedure Performed hysteroscopy/ polypectomy/ removal of IUD/dilatation curettage Surgeon Benji Nieto MD Anesthesia MAC and Local Indications so 52-year-old female with IUD strings not reachable in the office Findings IUD was found easily and removed. A small uterine polyp was noted as well. Description of Procedure Patient was prepped draped in normal sterile fashion placed in dorsal lithotomy position. Under excellent IV sedation weighted speculum placed in posterior fornix vagina. Anterior lip of cervix grasped with single-tooth tenaculum. 2.5cc 1% xylocaine anesthesia placed at 2, 4, 8, 10:00 a.m. of the cervix. The polyp forceps was passed IUD difficulty. Next the [facility] hysteroscope was passed into the uterus. A small uterine polyp was noted and it was removed with the of the day hysteroscope. Uterus was then scraped over the entire 360s and was a good grating sound was heard. Instruments withdrawn and blood loss estimated 5cc. All sponge, needle, instrument counts were correct. There were no immediate complications Estimated Blood Loss 5 Drains No Packing No Pathology Yes Complications No immediate complications Condition Stable Disposition PACU
[2023-01-24 10:28] VITALS: BP 105/76; PULSE 99; RESP 16
[2023-01-24 10:55] VITALS: BP 105/62; PULSE 64; RESP 14
[2023-01-24 11:25] VITALS: BP 109/52; PULSE 72; RESP 16
[2023-01-24 11:52] LABS: Glucose Point of Care 121 mg/dl (65-105)
== END 2023-01-24 11:47 | disposition home or self-care (01) ==
PROVIDERS: PCP Nurse Practitioner Family; Visit Provider Obstetrics & Gynecology
PROC: 0U5B8ZZ Destruction of Endometrium, Via Natural or Artificial Opening Endoscopic (ICD-10-PCS; CPT 58563; principal; 2023-01-24 09:45)
DX: T83.32XA Displacement of intrauterine contraceptive device, initial encounter (principal); N84.0 Polyp of corpus uteri; F17.210 Nicotine dependence, cigarettes, uncomplicated; F17.290 Nicotine dependence, other tobacco product, uncomplicated; E11.9 Type 2 diabetes mellitus without complications; I10 Essential (primary) hypertension; E66.01 Morbid (severe) obesity due to excess calories; Z68.41 Body mass index [BMI] 40.0-44.9, adult; E55.9 Vitamin D deficiency, unspecified
CPT/HCPCS: 58558; 58301; 82948; 88305; A9270; J2250; J2704; J3010; J7120

== ENCOUNTER 2023-02-04 10:21 | Outpatient (CLI) | payer OTHER, SELFPAY ==
--- NOTE | ~2023-02-04 | MR_ITS ---
EXAMINATION: MR brain/brain stem wo/w con DATE: 02/04/2023 11:49 INDICATION: Amnesia TECHNIQUE: Magnetic resonance imaging (MRI) of the brain and brainstem was performed without and with 20 mL Multihance intravenous contrast. Sequences included sagittal and axial T1-weighted SE, axial d iffusion-weighted FS SE, axial 3D SWAN, axial T2-weighted FLAIR, and axial T2-weighted FSE. Postcontr ast axial and coronal T1-weighted SE was obtained. Apparent diffusion coefficient (ADC) maps were cre ated. COMPARISON: Brain MR dated 01/21/2022 FINDINGS: There are no areas of restricted diffusion to suggest acute infarction. No intracranial hemorrhage or abnormal intracranial mass lesion. There are no intraparenchymal signal abnormalities seen on the ot her pulse sequences. The ventricles are symmetric and normal in size. There are no abnormal extra-axi al fluid collections. Flow voids are seen in the cerebral arteries on the T2-weighted sequences consi stent with their expected patency. Visualized orbits and soft tissues are unremarkable. There are no areas of abnormal enhancement on the post contrast images. IMPRESSION: 1. Normal brain MR. Reviewed, dictated and finalized at location [facility]. IMPRESSION: 1. Normal brain MR.
== END 2023-02-04 10:22 | disposition home or self-care (01) ==
PROVIDERS: PCP Nurse Practitioner Family; Visit Provider Nurse Practitioner Family
DX: R41.3 Other amnesia (principal); R42 Dizziness and giddiness; R53.1 Weakness
CPT/HCPCS: 36415; 70553; 80053; 82728; 83540; 83550; 85025; A9577

== ENCOUNTER → 2023-04-16 12:55 | Outpatient (CLI) | payer OTHER, SELFPAY ==
--- NOTE | ~2023-04-16 | US_ITS ---
US venous doppler UE DATE: 04/16/2023 14:04 INDICATION: Right arm pain. Left forearm pain, failed left IVC. Fell on right arm 2 weeks ago. TECHNIQUE: Real-time and color flow imaging and Doppler analysis of the bilateral upper extremity vei ns COMPARISON: None FINDINGS: The internal jugular veins, subclavian, axillary, brachiocephalic, basilic, cephalic, radia l and ulnar veins are patent bilaterally. IMPRESSION: No evidence of deep venous thrombosis of the upper extremities Reviewed, dictated and finalized at [facility]. Reviewed, dictated and finalized at location [facility].
== END ==
PROVIDERS: PCP Family Medicine; Visit Provider Nurse Practitioner Family
DX: M79.601 Pain in right arm (principal); M79.89 Other specified soft tissue disorders
CPT/HCPCS: 93970

== ENCOUNTER → 2023-04-23 13:27 | Outpatient (CLI) | payer OTHER, SELFPAY ==
--- NOTE | ~2023-04-23 | CT_ITS ---
Non-contrast CT scan of the Abdomen and Pelvis Clinical indication: Adrenal nodule Technique: 2.5 mm axial scans were obtained through the abdomen and pelvis without intravenous or or al contrast. Dose reduction technique was used on this scan by utilizing automated exposure control a nd iterative reconstruction technique. The dose-length product (DLP) was 1087.37 mGy-cm. Findings: Images through the lung bases reveal no abnormalities. There is no evidence of renal or ureteral calculi. The kidneys and the ureters are nondilated. The liver, spleen, pancreas, and kidneys appear normal. Low-density bilateral adrenal nodules are con sistent with adenomas, measuring 2.5 cm on the right, and 1.5 cm on the left. Cystectomy clips are pr esent. There is no aortic aneurysm. There is no evidence of bowel obstruction. Normal appendix. Images through the pelvis were performed. There is no evidence of ascites or lymphadenopathy. Urinary bladder unremarkable. No adnexal mass seen. Impression: Bilateral adrenal adenomas, as detailed above, right larger than left. Reviewed, dictated and finalized at [facility]. Impression: Bilateral adrenal adenomas, as detailed above, right larger than left.
== END ==
PROVIDERS: PCP Nurse Practitioner Family; Referring Provider Internal Medicine Hematology & Oncology; Visit Provider Internal Medicine
DX: D35.01 Benign neoplasm of right adrenal gland (principal); D35.02 Benign neoplasm of left adrenal gland
CPT/HCPCS: 74176

== ENCOUNTER 2023-05-26 13:51 | Outpatient (CLI) | payer OTHER, SELFPAY ==
--- NOTE | ~2023-05-26 | MM_ITS ---
EXAMINATION: MM screening melina BI w jagdish HISTORY: Screening mammogram TECHNIQUE: Craniocaudal and mediolateral oblique 3-D tomosynthesis images were obtained and synthetic 2-D images were generated. CAD analysis was submitted and interpreted. COMPARISON: 12/08/2021 BREAST PARENCHYMAL COMPOSITION: There are scattered areas of fibroglandular density. FINDINGS: No suspicious mass, calcification, or architectural distortion are identified in either damien ast to suggest malignancy. There has been no suspicious interval change. IMPRESSION: 1. No mammographic evidence of malignancy. 2. Recommend routine screening mammography in one year. BI-RADS Category 1: Negative Reviewed, dictated and finalized at location [facility]. [employer]
== END 2023-05-26 13:52 | disposition home or self-care (01) ==
LOC: ANHIMG 13:54
PROVIDERS: PCP Nurse Practitioner Family; Visit Provider Nurse Practitioner Family
DX: Z12.31 Encounter for screening mammogram for malignant neoplasm of breast (principal)
CPT/HCPCS: 77063; 77067

== ENCOUNTER 2023-08-14 09:42 | Outpatient (CLI) | payer OTHER, SELFPAY ==
[2023-08-14 10:12] LABS: Basophils Absolute Auto 0.1 K/mm3 (0.0-0.1); Eosinophils Absolute Auto 0.2 K/mm3 (0-0.3); Hematocrit 48.5 % (37.0-47.0); Hemoglobin 15.9 g/dL (12.0-15.0); Immature Granulocyte Absolute 0.02 K/mm3 (0.00-0.031); Immature Granulocyte Percent A 0.2 % (0-0.5); Lymphocytes Absolute Auto 2.73 K/mm3 (0.9-3.2); Lymphocytes Percent Auto 32.8 % (18.3-44.2); Mean Corpuscular HGB Conc 32.8 g/dl (32-36); Mean Corpuscular Hemoglobin 31.5 pg (26-34); Mean Platelet Volume 10.2 fl (7.4-10.4); Monocytes Absolute Auto 0.6 K/mm3 (0.1-0.6); Monocytes Percent Auto 7.7 % (2.6-8.5); Neutrophils Absolute Auto 4.7 K/mm3 (1.3-6.7); Neutrophils Percent Auto 56.3 % (45.5-73.1); Platelet Count Result 278 k/mm3 (150-375); Red Blood Count 5.05 M/mm3 (4.2-5.4); Red Cell Distribution Width 13.3 % (11.5-14.5); White Blood Count 8.3 K/mm3 (4.5-10.0)
[2023-08-14 10:33] LABS: Alanine Aminotransferase 20 U/L (6-35); Albumin Level 4.3 g/dL (3.5-5.1); Alkaline Phosphatase 100 U/L (38-126); Anion Gap 8 mmol/L (8-16); Aspartate Amino Transferase 25 U/L (14-36); Bilirubin,Total 0.4 mg/dL (0.2-1.3); Blood Urea Nitrogen 13 mg/dL (7-17); Calcium 9.2 mg/dL (8.4-10.2); Carbon Dioxide 26 mmol/L (22-30); Chloride 107 mmol/L (98-107); Estimated Glomerular Filt Rate > 60; Glucose 118 mg/dL (65-110); Potassium 4.2 mmol/L (3.4-5.0); Sodium 141 mmol/L (137-145)
[2023-08-14 11:03] LABS: Iron 113 ug/dL (37-170)
[2023-08-14 11:19] LABS: Percent Iron Saturation 46 % (20-50)
== END 2023-08-14 09:43 | disposition home or self-care (01) ==
LOC: ANHLAB 09:47
PROVIDERS: PCP Family Medicine; Visit Provider Internal Medicine Hematology & Oncology
DX: E83.119 Hemochromatosis, unspecified (principal)
CPT/HCPCS: 36415; 80053; 82728; 83540; 83550; 85025

== ENCOUNTER 2023-11-28 10:54 | Outpatient (CLI) | payer OTHER, SELFPAY ==
--- NOTE | ~2023-11-28 | CT_ITS ---
CT Scan of the Chest without Contrast: Clinical Indication: Lung cancer screening, nicotine dependence Technique: Contiguous sections were acquired throughout the chest without intravenous contrast. Dose reduction technique was used on this scan by utilizing automated exposure control and iterative recon struction technique. The dose-length product (DLP) was 202.94 mGy-cm. Findings: There is no evidence of any significant mediastinal, hilar or axillary lymphadenopathy. The mediastin al soft tissues appear normal. There is no evidence of pleural or pericardial effusion. There is linear scarring right upper lobe. There are calcified granulomas in the right middle lobe. T here are mild patchy groundglass opacities at the right lung base, the right middle lobe and right lo wer lobe. No discrete pulmonary nodule seen otherwise. Images through the upper abdomen reveal bilateral low-density adrenal nodules, compatible with adrena l adenomas. Cholecystectomy clips are present. Impression: BI-RADS 2-S: Benign appearance. 12 month follow-up screening CT advised. Subtle patchy ground glass opacities at the right middle lobe and right lower lobe, suggestive of aty pical infectious process/pneumonitis. Bilateral adrenal adenomas. Reviewed, dictated and finalized at [facility]. Impression: BI-RADS 2-S: Benign appearance. 12 month follow-up screening CT advised. Subtle patchy ground glass opacities at the right middle lobe and right lower l obe, suggestive of atypical infectious process/pneumonitis. Bilateral adrenal adenomas.
== END 2023-11-28 10:55 | disposition home or self-care (01) ==
PROVIDERS: PCP Family Medicine; Visit Provider Nurse Practitioner Family
DX: Z12.2 Encounter for screening for malignant neoplasm of respiratory organs (principal); R06.02 Shortness of breath; Z72.0 Tobacco use; D35.02 Benign neoplasm of left adrenal gland; D35.01 Benign neoplasm of right adrenal gland; R91.8 Other nonspecific abnormal finding of lung field
CPT/HCPCS: 71271

== ENCOUNTER 2023-12-25 13:29 | Outpatient (CLI) | payer OTHER, SELFPAY ==
--- NOTE | ~2023-12-25 | XR_ITS ---
Left Knee Technique: AP, lateral, and sunrise views were obtained. Clinical History: Pain Findings: No fracture or dislocation is seen. Osseous alignment is anatomic. Minimal intercondylar no tch spurring noted. Soft tissues are unremarkable. No joint effusion is seen. Impression: Minimal intercondylar notch spurring. Reviewed, dictated and finalized at location . Impression: Minimal intercondylar notch spurring.
--- NOTE | ~2023-12-25 | XR_ITS ---
XR abdomen/kub 1V 12/25/2023 14:08 INDICATION: Constipation TECHNIQUE: KUB COMPARISON: None FINDINGS: Bowel gas pattern is normal. Moderate colonic fecal loading. There are cholecystectomy clip s. There is no evidence of free air, mass, organomegaly, ascites or obstruction. No abnormal calculi are seen. Calcifications in the pelvis are believed to be phleboliths. The bones appear intact. IMPRESSION: 1: No acute abdominal abnormality identified. Reviewed, dictated and finalized at location B.
--- NOTE | ~2023-12-25 | XR_ITS ---
Clinical Indication: Pneumonia PA and lateral views of the chest: Comparison: 11/02/2021 Findings: The lungs are clear, without evidence of focal consolidation or pleural effusion. Cardiome diastinal silhouette is within normal limits. Bones and soft tissues are unremarkable. Impression: Normal chest. Reviewed, dictated and finalized at location . Impression: Normal chest.
== END 2023-12-25 13:30 | disposition home or self-care (01) ==
LOC: ANHIMG 13:29
PROVIDERS: PCP Family Medicine; Visit Provider Nurse Practitioner Family
DX: M25.762 Osteophyte, left knee (principal); J98.4 Other disorders of lung
CPT/HCPCS: 71046; 73564; 74018

== ENCOUNTER 2024-01-22 06:43 | Outpatient (CLI) | payer OTHER, SELFPAY ==
--- NOTE | ~2024-01-22 | MR_ITS ---
MRI of the brain Clinical History: Ataxia COMPARISON: 02/04/2023 Technique: Axial and sagittal T1-weighted images were acquired. These were followed by axial T2-weigh aubrey, diffusion weighted, gradient, and FLAIR images. Findings: No abnormal signal seen in the brain parenchyma. No acute infarct, intracranial hemorrhage, or mass lesion. Ventricles and subarachnoid spaces are unremarkable. Orbits are unremarkable. Paranasal sinuses and m astoid air cells are clear. Major intracranial flow voids are intact. Sagittal midline structures are intact. IMPRESSION: Normal exam. Reviewed, dictated and finalized at location [facility]. IMPRESSION: Normal exam.
--- NOTE | ~2024-01-22 | MR_ITS ---
MRI of the cervical spine Clinical History: Ataxia Technique: Axial T2-weighted and gradient images, and sagittal T1-weighted, T2-weighted, and STIR yris ges were acquired. Findings: There is no fracture or subluxation of the cervical spine. There is straightening of the no rmal cervical lordosis. No suspicious bone marrow signal abnormality seen. At C2-C3, there is no disc bulge or herniation. No spinal canal stenosis, cord compression, or neural foraminal narrowing. At C3-C4, there is no disc bulge or herniation. No spinal canal stenosis, cord compression, or left n eural foraminal narrowing. Possible minimal right neural foraminal narrowing. At C4-C5, there is no disc bulge or herniation. No spinal canal stenosis, cord compression, or defini te neural foraminal narrowing. At C5-C6, there is no disc bulge or herniation. There is no spinal canal stenosis, cord compression, or right neural foraminal narrowing. Probable left neural foraminal narrowing with left facet arthrop athy. At C6-C7, there is minimal disc osteophyte complex, contributing to mild right neural foraminal narro wing. Left neural foramen preserved. No central canal stenosis or cord compression. No abnormal signal seen in the spinal cord. Paravertebral soft tissues are unremarkable. Impression: Mild degenerative spondylosis, as above. Reviewed, dictated and finalized at [facility]. Impression: Mild degenerative spondylosis, as above.
--- NOTE | ~2024-01-22 | MR_ITS ---
MRI of the lumbar spine Clinical History: Ataxia Technique: Axial T2-weighted images, and sagittal T1-weighted, T2-weighted, and and T2 fat-sat images were acquired. Findings: There is no fracture or subluxation of the lumbar spine. There is straightening of the norm al lumbar lordosis. There are type III Modic changes about the L2-L3 disc space. No suspicious bone m arrow signal abnormality seen. At L1-L2, there is no disc bulge or herniation. There is moderate facet arthropathy. No central canal stenosis or neural foraminal narrowing. At L2-L3, there is advanced degenerative disc narrowing. There is mild disc bulge with mild to modera te facet arthropathy. No central canal stenosis or neural foraminal narrowing. At L3-L4, there is minimal disc bulge with moderate facet arthropathy. No central canal stenosis or n eural foraminal narrowing. At L4-L5, there is no disc bulge or herniation. There is mild facet arthropathy. No central canal chuck nosis or neural foraminal narrowing. At L5-S1, there is no disc bulge or herniation. There is moderate facet arthropathy. No central canal stenosis. There is mild to moderate bilateral neural foraminal narrowing. Paravertebral soft tissues are unremarkable. Impression: Mild degenerative spondylosis overall, as detailed above. Reviewed, dictated and finalized at [facility]. Impression: Mild degenerative spondylosis overall, as detailed above.
== END 2024-01-22 06:44 | disposition home or self-care (01) ==
PROVIDERS: PCP Family Medicine; Visit Provider Student in an Organized Health Care Education/Training Program
DX: R27.0 Ataxia, unspecified (principal); M47.896 Other spondylosis, lumbar region; M47.892 Other spondylosis, cervical region
CPT/HCPCS: 70551; 72141; 72148

== ENCOUNTER 2024-02-12 08:44 | Outpatient (CLI) | payer OTHER, SELFPAY ==
--- NOTE | 2024-02-12 11:45 | NEURO_ITS ---
Clinical note: The patient is 53-year-old with history of diabetes mellitus has complaints of paresthesias and weakness in her both feet and legs. a brief neurological examination was performed did not show any focal weakness or fasciculations or atrophy in her lower limbs. Summary of findings: 1. Bilateral peroneal motor distal latency amplitude and conduction velocity were within normal limits. 2. Bilateral tibial motor distal latency amplitude and conduction velocity within normal limits. 3. Bilateral sural and medial plantar sensory distal latencies and amplitudes were within normal limits. 4. Bilateral H-reflex latencies and amplitudes were within normal limits. The amplitudes were approximately 9-10 mV on both sides. 5. EMG examination performed on both lower limbs and related paraspinal muscles. No denervation changes were seen. Motor unit, amplitude and recruitment pattern were within acceptable normal limits. Impression: EMG and nerve study on both lower limbs were within acceptable normal limits. A negative examination would not rule out possibility of small fiber neuropathy or lumbosacral radiculopathy and hence clinical and radiographic correlation may be helpful if clinically indicated. Jovan Hong MD, FAAN, FAANEM Neurology/ Electrodiagnostic Medicine Nerve Conduction Studies Motor Nerve Results Latency Amplitude Segment Distance CV Comment Site (ms) (mV) (cm) (m/s) Left Fibular (EDB) Motor Ankle 4.3 2.6 Bel Fib Head 10.1 2.2 Bel Fib Head-Ankle 270 47 Pop Fossa 11.6 2.3 Pop Fossa-Bel Fib Head 70 47 Right Fibular (EDB) Motor Ankle 4.4 2.9 Bel Fib Head 9.9 3.0 Bel Fib Head-Ankle 250 45 Pop Fossa 11.4 2.9 Pop Fossa-Bel Fib Head 80 53 Left Tibial (AHB) Motor Ankle 6.7 12.4 Knee 14.8 9.6 Knee-Ankle 370 46 Right Tibial (AHB) Motor Ankle 4.2 10.8 Knee 12.7 8.6 Knee-Ankle 380 45 Sensory Nerve Results Latency (Peak) Amplitude (P-P) Segment Distance CV Comment Site (ms) (?V) (cm) (m/s) Left Medial Plantar (Mixed) Sensory Med Sole-Med Mall 3.1 17 Med Sole-Med Mall 110 35 Right Medial Plantar (Mixed) Sensory Med Sole-Med Mall 2.9 19 Med Sole-Med Mall 110 38 Left Sural Sensory Calf-Lat Mall 3.4 27 Calf-Lat Mall 120 35 Right Sural Sensory Calf-Lat Mall 3.1 17 Calf-Lat Mall 140 45 H-Reflex Results M-Lat H Lat H-M Lat Comment Site (ms) (ms) (ms) Left Tibial H-Reflex Pop Fossa - 30.9 - Right Tibial H-Reflex Pop Fossa - 28.5 - Electromyography Side Muscle Nerve Ins Act Fibs Psw Amp Dur Recrt Comment Right BicepsFemS Sciatic Nml Nml Nml Nml Nml Nml Right Semimembranosus Sciatic Nml Nml Nml Nml Nml Nml Right AntTibialis Dp Br Fibular Nml Nml Nml Nml Nml Nml Right Gastroc Tibial Nml Nml Nml Nml Nml Nml Right VastusMed Femoral Nml Nml Nml Nml Nml Nml Left BicepsFemS Sciatic Nml Nml Nml Nml Nml Nml Left Semimembranosus Sciatic Nml Nml Nml Nml Nml Nml Left AntTibialis Dp Br Fibular Nml Nml Nml Nml Nml Nml Left Gastroc Tibial Nml Nml Nml Nml Nml Nml Left VastusMed Femoral Nml Nml Nml Nml Nml Nml Left TensorFascLat SupGluteal Nml Nml Nml Nml Nml Nml Left L4 Parasp Rami Nml Nml Nml Nml Nml Nml Right L4 Parasp Rami Nml Nml Nml Nml Nml Nml Left L5 Parasp Rami Nml Nml Nml Nml Nml Nml Right L5 Parasp Rami Nml Nml Nml Nml Nml Nml MTDD
== END 2024-02-12 08:45 | disposition home or self-care (01) ==
PROVIDERS: PCP Family Medicine; Visit Provider Student in an Organized Health Care Education/Training Program
DX: R27.0 Ataxia, unspecified (principal); G62.9 Polyneuropathy, unspecified
CPT/HCPCS: 95886; 95910

== ENCOUNTER 2024-03-05 10:07 | Outpatient (CLI) | payer OTHER, SELFPAY ==
--- NOTE | 2024-03-05 16:10 | WPDSIXMINUTE ---
Six Minute Walk Procedure Procedure Performed Pulmonary Stress Test (6 min walk) Six Minute Walk Six Minute Walk: This is a 6 minute walk test. The test was performed and interpreted in accordance with the 2014 ERS/ATS task force guidelines. Findings: The patient's resting room air oxygen saturation measured by pulse oximetry was 98% and heart rate was 107 bpm. Patient ambulated for 457 meters and oxygen saturation remained 95 to 97%. Heart rate at the end of the study was 121 bpm. The patient did not qualify for supplemental oxygen at rest or with ambulation. There are no prior studies for comparison.
--- NOTE | 2024-03-05 16:11 | WPDPFTINT ---
PFT Procedure Performed PFT Procedure Performed Spirometry with Pre/Post Bronchodilator Plethysmography (Lung Vol) Diffusing Cap (DLCO) Flow Vol Loop PFT Interpretation This is a pulmonary function test with pre and post-bronchodilator spirometry, plethysmography and diffusing capacity. The test was performed and results interpreted in accordance with the 2019 and 2005 ATS/ERS Task Force guidelines respectively using the Global Lung Function Initiative-2012 reference equations. Patient demonstrated good effort and cooperation. Reproducibility criteria were met. The quality of the pre bronchodilator spirometry maneuver was Grade A and post bronchodilator spirometry maneuver was Grade A. Findings: Spirometry: The contour the inspiratory and expiratory flow tracing are normal. The pre bronchodilator FVC is 3.10 L, 91% predicted. The pre bronchodilator FEV1 is 2.37 L, 87% predicted. The pre bronchodilator FEV1: FVC ratio is 76%. The post bronchodilator FVC is 3.14 L, representing 1% increase. The post bronchodilator FEV1 is 2.42 L, representing a 2% increase. The post bronchodilator FEV1: FVC ratio 77%. Plethysmography: The total lung capacity is 5.85 L, 115% predicted. The functional residual capacity is 3.33 L, 117% predicted. The residual volume is 2.75 L, 150% predicted. The residual volume: Total lung capacity ratio is 47%. Diffusing capacity: The diffusing capacity unadjusted for hemoglobin and carboxyhemoglobin is 17.9, 80% predicted. The diffusing capacity adjusted for alveolar volume is 3.98, 87% predicted. In comparison to previous pulmonary function testing on 11/08/2021 the post bronchodilator FVC is unchanged from 2.95 L to 3.14 L. The post bronchodilator FEV1 is unchanged from 2.26 L to 2.42 L. The total lung capacity is increased from 4.75 L to 5.85 L. The functional residual capacity is increased from 2.64 L to 3.33 L. The residual volume is increased from 1.68 L to 2.75 L. The diffusing capacity unadjusted for hemoglobin and carboxyhemoglobin is unchanged from 17.2 to 17.9. The diffusing capacity adjusted for alveolar volume is unchanged from 4.56 to 3.98. Impression: The spirometry is normal without evidence of an obstructive abnormality. There is no significant improvement after inhaling a single dose of albuterol. The total lung capacity, functional residual capacity and residual volume: Total lung capacity ratio are normal with an increased residual volume. This is an abnormal but nonspecific lung volume pattern. The diffusing capacity is normal. in comparison to previous pulmonary function testing on 11/08/2021 there has been a greater than anticipated time dependent increase in the total lung capacity, functional residual capacity and residual volume with no significant change in the FVC, FEV1 or diffusing capacity. Clinical correlation is recommended.
== END 2024-03-05 10:08 | disposition home or self-care (01) ==
LOC: ANHPFT 10:07
PROVIDERS: PCP Family Medicine; Visit Provider Internal Medicine Critical Care Medicine
DX: R06.02 Shortness of breath (principal)
CPT/HCPCS: 94060; 94618; 94726; 94729

== ENCOUNTER 2024-04-23 10:21 | Outpatient (CLI) | payer OTHER, SELFPAY ==
--- NOTE | ~2024-04-23 | XR_ITS ---
CHEST RADIOGRAPH, PA AND LATERAL CLINICAL HISTORY: ABNORMAL FINDINGS. R/O COPD . COMPARISON: 12/25/2023. Reference is also made to a screening examination of the lung dated 11/28/2023 TECHNIQUE: PA and lateral views of the chest. FINDINGS The cardiomediastinal silhouette is unremarkable. Redemonstration of multiple calcifications within the right hilum and right upper lobe, unchanged fro m CT examination dated 12/25/2023. The lungs are otherwise clear. Visualized osseous structures and soft tissues are unremarkable. IMPRESSION: No focal infiltrate or effusion. Reviewed, dictated and finalized at location [facility].
== END 2024-04-23 10:22 | disposition home or self-care (01) ==
LOC: ANHIMG 10:23
PROVIDERS: PCP Family Medicine; Visit Provider Family Medicine
DX: R91.8 Other nonspecific abnormal finding of lung field (principal)
CPT/HCPCS: 71046